=== PATIENT | male | born 1975 | race American Indian/Alaskan Native ===

== ENCOUNTER 2019-05-19 14:49 | Emergency (ER) | payer MEDICAID, OTHER, SELFPAY ==
[2019-05-19 15:05] VITALS: BP 143/86; PULSE 88; RESP 18; TEMP 36.9; O2SAT 98
--- NOTE | 2019-05-19 15:22 | ED_ITS ---
HPI - Back Pain/Injury General Chief Complaint: Back Pain/Injury Stated Complaint: Lower Back Pain Time Seen by Provider: 05/19/19 15:01 Source: patient History of Present Illness HPI Narrative: 43-year-old gentleman with a history of alcohol use disorder currently on probation and sober presents with 3 days of acute low back pain. He was out on a boat as part of a fishing activities with quite a bit of splashing and pounding with the boat ride no pain at the time. Two days later was lying on the couch set up abruptly and felt an acute pulling tugging in the low back it has gotten worse over the last 3 days. He has had no change to bowel or bladder habits, no fevers, he has a chronic smoker's cough and finds that when he coughs the back pain is exacerbated, he is able to walk without neurologic changes but does have an antalgic gait. No chest pain, shortness of breath no rashes, no lower extremity edema, no meningismus symptoms or headache. He has tried no mbwg-sjo-hsmtryt pain medication to treat this because of multiple addiction issues throughout family members -in general he tries to avoid all medications. Review of Systems Review of Systems Narrative: All systems reviewed and are unremarkable except as noted in HPI and below Patient History Medical History Alcohol use disorder (Inactive) Social History Smoking Status: Current every day smoker Smoking Status: Current every day smoker alcohol intake frequency: a few times a month Substance Use Type: does not use Exam Narrative Exam Narrative: General: Healthy appearing, in no acute distress. Able to give a complete and coherent history. Well-nourished well-developed HEENT: Moist mucous membranes, normal sclera with reactive pupils, Neck: No JVD, supple Respiratory: Lungs are clear to auscultation, no wheezing no rales no rhonchi. Full and symmetrical air movement Cardiac: Regular rate and rhythm no murmurs no bruits Abdomen: Soft nontender good bowel tones, no flank pain Skin: Warm and dry, no rashes Neurologic: Grossly neurologically intact with no obvious asymmetries or abnormalities, no hyper reflexia Extremities: No trauma, well perfused Spine: No point tenderness along the axial skeleton. He does have palpable muscle spasm along the lower lumbar spine bilaterally Psych: Cooperative, appropriate insight and affect Initial Vital Signs Initial Vital Signs: Vital Signs Temperature 98.5 F 05/19/19 15:05 Pulse Rate 88 05/19/19 15:05 Respiratory Rate 18 05/19/19 15:05 Blood Pressure 143/86 H 05/19/19 15:05 Pulse Oximetry 98 05/19/19 15:05 Course Orders Ordered: Discontinued Medications Ketorolac Tromethamine (Toradol) 30 mg IM NOW ONE Stop: 05/19/19 15:21 Vital Signs Vital signs: Vital Signs - 8 hr 05/19/19 15:05 Temperature 98.5 F Pulse Rate 88 Respiratory Rate 18 Blood Pressure 143/86 H Pulse Oximetry 98 MDM - Back Pain/Injury Medical Records Attestation: I reviewed the patient's medical records. [facility] Narrative Medical decision making narrative: Three days of musculoskeletal back pain with lumbar area spasm. No red flags to suggest infection, epidural abscess, trauma or other more significant pathology. Recommended 400 mg of ibuprofen and a single Tylenol every 6 hours to help with pain along with ice. He states that h e will take Tylenol only rarely and when he does he takes 2 g at a time without any relief. Have suggested he stop overdosing on Tylenol and try the ibuprofen Tylenol regimen suggested. They had questions about topical pain relievers and patches, encouraged him to try them if the ice ibuprofen oral Tylenol were not effective. He was not interested in chiropractic referral but willing to consider physical therapy. Safe for home discharge at this time Discharge Plan Departure Patient Disposition: Home Clinical Impression: Strain of lumbar region Qualifiers: Encounter type: initial encounter Qualified Code(s): S39.012A - Strain of mu scle, fascia and tendon of lower back, initial encounter Instructions: DI for Back Strain or Sprain Activity Restrictions/Additional Instructions: Thank you for coming in today Your given a shot of Toradol in the emergency department to help with your immediate pain. For your recurrent pain over the next couple of days I would recommend 2 eyzq-uqk-phxonpz ibuprofen (400 mg) and 1 Tylenol. You have indicated that at times she will take 4 Tylenol for pain and it does not help. I would encourage you to avoid doing that since that does not help and for Tylenol is above the recommended safe dosing range Please consider following up with physical therapy to treat this acute back pain flare and prevent future problems If you find that you are having more difficulties please feel free to return to the emergency department. I would expect that your pain will lessen over the next week or so and you should be back to regular activity and movement by next week.
[2019-05-19] MEDS: KETOROLAC 60 MG/2 ML VIAL 30 MG IM (15:36)
== END 2019-05-19 15:58 | disposition home or self-care (01) ==
PROVIDERS: Emergency Provider Emergency Medicine
DX: S39.012A Strain of muscle, fascia and tendon of lower back, initial encounter (principal)
CPT/HCPCS: 96372; 99283; J1885

== ENCOUNTER → 2021-03-20 15:47 | Outpatient (CLI) | payer MEDICAID, OTHER, SELFPAY ==
--- NOTE | 2021-03-20 | DI.RAD.S_ITS ---
PROCEDURE: XR ANKLE LT MIN 3V INDICATIONS: Fall,Left Ankle Pain TECHNIQUE: 3 views of the ankle were acquired. COMPARISON: None. FINDINGS: Bones: Mildly displaced fracture of the distal fibula. The remaining visualized osseous structures appear maintained. Dorsal calcaneal enthesophyte. Ankle mortise is normally aligned. Soft tissues: Small tibiotalar joint effusion. Lateral soft tissue swelling. IMPRESSION: Mildly displaced fracture of the distal fibula. Dictated by: Misha Jarvis M.D. on 03/20/2021 at 16:04 Approved by: Misha Jarvis M.D. on 03/20/2021 at 16:07
== END ==
PROVIDERS: PCP Physician Assistant; Referring Provider Physician Assistant; Visit Provider Physician Assistant
DX: S82.832A Other fracture of upper and lower end of left fibula, initial encounter for closed fracture (principal); M25.572 Pain in left ankle and joints of left foot; W19.XXXA Unspecified fall, initial encounter
CPT/HCPCS: 73610

== ENCOUNTER → 2021-08-09 13:12 | Outpatient (CLI) | payer MEDICAID, OTHER, SELFPAY ==
--- NOTE | 2021-08-09 | DI.RAD.S_ITS ---
PROCEDURE: XR ANKLE LT MIN 3V INDICATIONS: Sprain of calcaneofibular ligament of left ankle, TECHNIQUE: 3 views of the ankle were acquired. COMPARISON: [facility], , XR ANKLE LT MIN 3V, 03/20/2021, 15:41. FINDINGS: Bones: Distal fibular fracture is redemonstrated and appears unchanged anatomic alignment from the study dated March 20, 2021. Some periosteal reaction is visualized. Soft tissues: No tibiotalar joint effusion. Achilles tendon appears normal. IMPRESSION: Persistent partially healed left distal fibular fracture. Dictated by: Earnestine Nguyen M.D. on 08/09/2021 at 17:12 Approved by: Earnestine Nguyen M.D. on 08/09/2021 at 17:13
== END ==
PROVIDERS: PCP Physician Assistant; Referring Provider Family Medicine; Visit Provider Family Medicine
DX: S82.832G Other fracture of upper and lower end of left fibula, subsequent encounter for closed fracture with delayed healing (principal); S93.412A Sprain of calcaneofibular ligament of left ankle, initial encounter
CPT/HCPCS: 73610

== ENCOUNTER 2023-09-29 21:38 | Emergency (ER) | payer MEDICAID, OTHER, SELFPAY ==
[2023-09-29 21:45] VITALS: BP 185/99; PULSE 98; RESP 18; TEMP 37.4; O2SAT 96; BMI 41.7
--- NOTE | 2023-09-29 23:28 | ED.BACK ---
HPI - Back Pain/Injury General Chief Complaint: Back Pain/Injury Stated Complaint: back pain Time Seen by Provider: 09/29/23 21:40 Source: patient History of Present Illness HPI Narrative: 47yoM presents for lumbar back pain. States that he thinks he may have twisted something [place] He states that he has not taken any sveg-xlh-usaejvo pain medications at home because he was afraid to become addicted to them. Denies bowel or bladder incontinence, denies saddle anesthesia. Occasionally pain radiates down his left leg Related Data Previous Rx's Medication Instructions Recorded methocarbamol 500 mg tablet 500 mg PO TID #30 tabs 09/30/23 methylprednisolone 4 mg tablets in See Rx Instructions PO .COMPLEX 09/30/23 a dose pack (Medrol (Timothy)) #21 ea Allergies Allergy/AdvReac Type Severity Reaction Status Date / Time No Known Drug Allergies Allergy Verified 09/29/23 23:48 Patient History Medical History Alcohol use disorder Social History Smoking Status: Current every day smoker Smoking Status: Current every day smoker alcohol intake frequency: a few times a month Substance Use Type: does not use Exam Initial Vital Signs Initial Vital Signs: Vital Signs Temperature 99.4 F 09/29/23 21:45 Pulse Rate 98 H 09/29/23 21:45 Respiratory Rate 18 09/29/23 21:45 Blood Pressure 185/99 H 09/29/23 21:45 Pulse Oximetry 96 09/29/23 21:45 Oxygen Delivery Method Room Air 09/29/23 21:45 Const: Awake, alert, no acute distress, obese MSK: No midline tenderness, positive straight leg raise left-hand side, no numbness Skin: Warm, Dry, intact, no rashes Neuro: AO x3, CN II-XII grossly intact, moves all extremities Course Orders Ordered: Discontinued Medications Acetaminophen (Acetaminophen 325 Mg Tablet) 975 mg PO NOW ONE Stop: 09/29/23 23:28 Last Admin: 09/29/23 23:34 Dose: 975 mg Documented By: Dexamethasone (Dexamethasone 10 Mg/Ml Vial) 10 mg IV NOW ONE Stop: 09/29/23 23:28 Last Admin: 09/29/23 23:33 Dose: 10 mg Documented By: Ketorolac Tromethamine (Ketorolac 30 Mg/Ml Vial) 15 mg IV NOW ONE Stop: 09/29/23 23:28 Last Admin: 09/29/23 23:33 Dose: 15 mg Documented By: Lidocaine (Lidocaine 5% Patch) 1 each TOP NOW ONE Stop: 09/29/23 23:28 Last Admin: 09/29/23 23:34 Dose: 1 each Documented By: Methocarbamol (Methocarbamol 500 Mg Tablet) 1,000 mg PO NOW ONE Stop: 09/29/23 23:28 Last Admin: 09/29/23 23:34 Dose: 1,000 mg Documented By: Vital Signs Vital signs: Vital Signs - 8 hr 09/29/23 21:45 Temperature 99.4 F Pulse Rate 98 H Respiratory Rate 18 Blood Pressure 185/99 H Pulse Oximetry 96 Oxygen Delivery Method Room Air MDM - Back Pain/Injury Differential Diagnosis Differential diagnosis: Likely lumbar radiculopathy, sciatica and strain of lumbar region MDM Narrative Medical decision making narrative: Lumbar back pain after straining. No signs or symptoms of cauda equina. Patient has not taken any medications at home. No indication for imaging or narcotics at this time based on history and exam. Patient given nonnarcotic pain medications and steroids with significant improvement in symptoms. Medrol Dosepak and short course of muscle relaxers sent to pharmacy of choice. Patient advised on appropriate dosing of Tylenol and ibuprofen and instructed that these are non addictive medications and our safety take deic-keh-gynrhlp Discharge Plan Departure Patient Disposition: Home Clinical Impression: Lumbar back pain Instructions: DI for Low Back Pain Activity Restrictions/Additional Instructions: Take Tylenol and ibuprofen for pain at home. These are non addictive medications and we will help improve your back pain. In addition a short course of steroids has been sent to your pharmacy as well as a short course of muscle relaxers. Use gentle stretching exercises to help relieve pain and follow up with your primary care doctor. Prescriptions: New methocarbamol 500 mg tablet 500 mg PO TID Qty: 30 0RF methylprednisolone [Medrol (Timothy)] 4 mg tablets,dose pack See Rx Instructions .ROUTE .COMPLEX Qty: 21 0RF Rx Instructions: orally per package directions Referrals: Crow,Yoan Neeraj, PA-C [Primary Care Provider] - Stand Alone Forms: Patient Portal/API
[2023-09-29] MEDS: KETOROLAC 30 MG/ML VIAL 15 MG IV (23:33)
[2023-09-29] MEDS: DEXAMETHASONE 10 MG/ML VIAL IV (23:33)
[2023-09-29] MEDS: ACETAMINOPHEN 325 MG TABLET 975 MG PO (23:34)
[2023-09-29] MEDS: methocarbamoL 500 MG TABLET 1000 MG PO (23:34)
[2023-09-29] MEDS: LIDOCAINE 5% PATCH 1 EACH TOP (23:34)
[2023-09-30 00:56] VITALS: BP 155/78; PULSE 95; RESP 18; TEMP 36.9; O2SAT 98
== END 2023-09-30 00:58 | disposition home or self-care (01) ==
PROVIDERS: Emergency Provider Emergency Medicine; PCP Physician Assistant
DX: M54.50 Low back pain, unspecified (principal); X50.1XXA Overexertion from prolonged static or awkward postures, initial encounter; X50.0XXA Overexertion from strenuous movement or load, initial encounter
CPT/HCPCS: 96374; 96375; 99284; J1100; J1885

== ENCOUNTER 2024-11-25 00:36 | Emergency (ER) | payer MEDICAID, SELFPAY ==
[2024-11-25 01:06] VITALS: BP 194/104; PULSE 97; RESP 96; TEMP 36.6; O2SAT 98; BMI 42.3
[2024-11-25 01:14] VITALS: BP 158/111; PULSE 105; RESP 22; O2SAT 95
--- NOTE | 2024-11-25 01:27 | ED_ITS ---
HPI - Dental/Oral General Chief complaint: Dental/Oral Stated complaint: Dental Pain Time Seen by Provider: 11/25/24 01:24 Source: patient Mode of arrival: Ambulatory History of Present Illness HPI Narrative: 49-year-old male with ongoing right-sided lower jaw/oral pain due to dental caries, taking oral antibiotic amoxicillin from his dentist, who felt his blood pressure was too high to pursue extraction or other definitive procedure at this time. Patient states that he is on losartan 50 mg daily, and an oral water pill medication, for blood pressure control. He denies missed doses of any blood pressure medications. He is taking gehu-hgo-grpwkqb Tylenol, with inadequate relief for his right-sided jaw pain. Able to swallow, normal voice. Can move neck well. PCP care via [facility]. Related Data Previous Rx's ?Medication ?Instructions ?Recorded methocarbamol 500 mg tablet 500 mg PO TID #30 tabs methylprednisolone 4 mg tablets in See Rx Instructions PO .COMPLEX 09/30/23 a dose pack (Medrol (Timothy)) #21 ea amlodipine 5 mg tablet 5 mg PO DAILY #14 tabs 11/25 Allergies Allergy/AdvReac Type Severity Reaction Status Date / Time acetaminophen (From Vicodin) Allergy Hives Verified 11/25/24 01:13 hydrocodone (From Vicodin) Allergy Hives Verified 11/25/24 01:13 Patient History Medical History (Updated 11/25/24 @ 01:39 by Carlos Ortiz MD) Alcohol use disorder tobacco type: vaping alcohol intake frequency: a few times a month Exam Narrative Exam Narrative: GENERAL: Well-developed patient, in mild distress. HEAD: Atraumatic. Normocephalic. EYES: Pupils equal round and reactive. Extraocular motions intact. No scleral icterus. No injection or drainage. ENT: Nose without bleeding, purulent drainage. Throat without erythema, tonsillar hypertrophy or exudate. Airway patent. Diffuse dental caries, no obvious gingival or right buccal edema. No lingual edema. No obvious swelling to submandibular neck or anterior cervical lymph node chain. NECK: Trachea midline. Non tender CARDIOVASCULAR: Regular rate and rhythm without murmurs, gallops, or rubs. RESPIRATORY: Clear to auscultation. Breath sounds equal bilaterally. No wheezes, rales, or rhonchi. GASTROINTESTINAL: Abdomen soft, non-tender, nondistended. EXTREMITIES: No edema or joint tenderness. BACK: Nontender without deformity or crepitance. No flank tenderness. NEURO: AOx3. Motor functions grossly nonfocal. SKIN: No rash or erythema of visible areas Initial Vital Signs Initial Vital Signs: Vital Signs Temperature 97.8 F 11/25/24 01:06 Pulse Rate 97 H 11/25/24 01:06 Respiratory Rate 96 H 11/25/24 01:06 Blood Pressure 194/104 H 11/25/24 01:06 Pulse Oximetry 98 11/25/24 01:06 Oxygen Delivery Method Room Air 11/25/24 01:06 Course Orders Ordered: Discontinued Medications Amlodipine Besylate (Amlodipine 5 Mg Tablet) 5 mg PO NOW ONE Stop: 11/25/24 01:37 Last Admin: 11/25/24 01:49 Dose: 5 mg Documented By: Tramadol HCl (Tramadol 50 Mg Prepack) 1 bottle MISC DIRECTED ONE Stop: 11/25/24 01:37 Last Admin: 11/25/24 01:49 Dose: 1 bottle Documented By: Tramadol HCl (Tramadol 50 Mg Tablet) 50 mg PO NOW ONE Stop: 11/25/24 01:37 Last Admin: 11/25/24 01:49 Dose: 50 mg Documented By: Vital Signs Vital signs: Vital Signs - 8 hr 11/25/24 01:06 11/25/24 01:14 Temperature 97.8 F Pulse Rate 97 H 105 H Respiratory Rate 96 H 22 Blood Pressure 194/104 H 158/111 H Pulse Oximetry 98 95 Oxygen Delivery Method Room Air MDM - Dental/Oral MDM Narrative Medical decision making narrative: 49-year-old male on oral amoxicillin awaiting follow up with dentist, ongoing elevated blood pressure precluding dental extraction, taking losartan and oral diuretic per patient report. Elevated blood pressure noted, could be secondary to pain, however likely has an adequate blood pressure control. Oral tramadol dose, home pack of tramadol. We add amlodipine 5 mg dose now, then prescription for 2 weeks sent to his pharmacy, advised to have blood pressure check with PCP later this week in clinic, to titrate blood pressure medications further, and to expedite definitive dental follow up care. Home with family. Return precautions discussed. Discharge Plan Departure Patient Disposition: Home Clinical Impression: Hypertension, Pain due to dental caries Activity Restrictions/Additional Instructions: Ongoing right-sided dental pain, elevated blood pressure reportedly too high for dentist comfort level 2 do extraction or other definitive procedures so far. Taking losartan 50 mg daily as well as an oral diuretic water pill medication, for blood pressure control. Still having inadequate blood pressure control. Also having pain ongoing to right jaw, able to swallow and move neck. No fever on triage noted. Pain medication tramadol dose given, with home pack provided for discharge. We will add amlodipine 5 mg tablet daily for further blood pressure control, 1st dose now, short-term prescription sent to your pharmacy. Follow up with your regular doctor later this week to reassess your blood pressure, and expedite definitive dental treatment. Continue taking your amoxicillin antibiotic prescribed by your dentist. Return earlier to this/nearest emergency department for any change worsening symptoms or any concerns prior. Prescriptions: New amlodipine 5 mg tablet 5 mg PO DAILY Qty: 14 0RF No Action methocarbamol 500 mg tablet 500 mg PO TID Qty: 30 0RF methylprednisolone [Medrol (Timothy)] 4 mg tablets,dose pack See Rx Instructions .ROUTE .COMPLEX Qty: 21 0RF Rx Instructions: orally per package directions Referrals: Yoan Maria PA-C [Primary Care Provider, Medical] Stand Alone Forms: Patient Portal/API
[2024-11-25 01:56] VITALS: BP 176/104; PULSE 99; RESP 17; O2SAT 96
== END 2024-11-25 01:57 | disposition home or self-care (01) ==
PROVIDERS: Emergency Provider Emergency Medicine; PCP Physician Assistant
DX: I10 Essential (primary) hypertension (principal); K08.89 Other specified disorders of teeth and supporting structures
CPT/HCPCS: 99283